=== PATIENT | female | born 1990 | race Caucasian/White ===

== ENCOUNTER 2024-11-03 00:12 | Emergency (ER) | payer BC, SELFPAY ==
[2024-11-03 00:14] VITALS: BP 150/103
[2024-11-03 00:43] LABS: % Basophils 0.7 % (0-2); % Eosinophils 1.9 % (0-6); % Immature Granulocytes 0.4 % (0-0.5); % Lymphocytes 27.3 % (20.5-51.1); % Monocytes 5.9 % (1.7-9.3); % Neutrophils 63.8 % (42.2-75.2); Absolute Basophils 0.1 10^3/uL (0-0.2); Absolute Eosinophils 0.2 10^3/uL (0-0.7); Absolute Immature Granulocytes 0.1 10^3/uL (0-0.05); Absolute Lymphocytes 3.4 10^3/uL (1.2-3.4); Absolute Monocytes 0.7 10^3/uL (0.1-0.6); Hemoglobin 14.2 g/dL (12.0-16.0); Mean Corp Hgb Conc. 35.5 g/dL (33.0-37.0); Mean Corpuscular Hgb 29.8 pg (27.0-31.0); Nucleated Red Blood Cells % 0 %; Platelet Count 307 10^3/uL (130-400); Red Blood Cell Count 4.76 10^6/uL (4.20-5.40); Red Cell Dist. Width 11.9 % (11.5-14.5); White Blood Cell Count 12.6 10^3/uL (4.8-10.8)
[2024-11-03 00:58] LABS: COVID-19 Antigen Negative (Negative)
[2024-11-03 01:01] LABS: HCG, Serum Qualitative Screen Negative
[2024-11-03 01:15] LABS: ALT (SGPT) 21 U/L (0-35); AST (SGOT) 28 U/L (14-36); Albumin 4.6 g/dl (3.5-5.0); Alkaline Phosphatase 54 U/L (38-126); Blood Urea Nitrogen 7 mg/dl (7-17); Calcium 9.7 mg/dl (8.4-10.2); Carbon Dioxide 26 mmol/L (22-30); Chloride 101 mmol/L (98-107); Glucose 99 mg/dl (70-99); Potassium 3.6 mmol/L (3.5-5.1); Sodium 137 mmol/L (135-145); Total Bilirubin 0.5 mg/dl (0.2-1.3); Total Protein 7.7 g/dl (6.3-8.2); eGFR > 60.00
--- NOTE | 2024-11-03 01:29 | ED.GENMED ---
History of Present Illness
General
Chief Complaint: Headache
Source: patient
Exam Limitations: none
Time Seen by Provider: 11/03/24 01:19
History of Present Illness
History of Present Illness:
This is a 33 year old female that comes in with c/o headache. States that she started 5 days ago with a migraine. States that normally her headaches only last 1-2 days but this is not going away. States that this is the worse headache that she ever
had. States that it started on the right back of her head and shoots up to the top behind her eye. States that she has been taking Excedrin Tension and Ibuprofen for pain with the last Ibuprofen being at 8pm. Denies any fever, chills, chest pain,
SOB, abd pain, nausea, vomiting, diarrhea, dizziness, urinary burning.
Past History
Past History
ED Past Medical History: Psychiatric (Anxiety) and Other (Headaches, ); Negative Asthma, HTN, Hypercholesterolemia or NIDDM
ED Past Surgical History: None
Social History
Tobacco: Non-smoker
Alcohol: None
Personal: Single
Living: with family
Review of Systems
Review of Systems
All Other Systems: ROS reviewed and negative except as documented in HPI and ROS
Constitutional: Reports no symptoms; Denies fever or chills
EENT: Reports no symptoms
Respiratory: Reports no symptoms; Denies cough or trouble breathing
Cardiac: Reports no symptoms; Denies chest pain
ABD/GI: Reports no symptoms; Denies abdominal pain, nausea, vomiting or diarrhea
: Reports no symptoms; Denies dysuria, frequency or urgency
Musculoskeletal: Reports no symptoms
Skin: Reports no symptoms
Neurological: Reports headache; Denies dizzy
Psychiatric: Reports no symptoms
Phy Exam
General Physical Exam
General Presentation: well appearing and no apparent distress
General age: appears stated age
General Skin: warm and dry
General Habitus: normal
General Mental: alert
General Hydration: dry mucous membranes
ENT Exam
ENT Exam: TM's normal, pharynx normal and neck supple
Eye Exam
Eye Exam: EOMI
Cardiovascular Exam
Cardiovascular Exam: regular rate/rhythm, no edema, no murmur and normal peripheral pulses
Pulmonary Exam
Pulmonary Exam: lungs clear, no respiratory distress, no rales, chest non tender, no crackles, no rhonchi, no wheezing and no cough
Gastrointestinal Exam
Gastrointestinal Exam: normal bowel sounds, non tender, soft, no organomegaly, no pulsatile mass and non distended
Musculoskeletal Exam
Musculoskeletal Exam: full ROM and no edema
Skin Exam
Skin Exam: normal color, warm/dry, no rash and no petechia
Psychiatric Exam
Psychiatric Exam: normal mood/affect
Course
Orders/Labs/Results
Orders:
Orders
11/03/24 00:21
Test Result ONCE
11/03/24 00:[address] [CT Head W/o Iv Contrast] Urgent
Comment:
Reason For Exam: right sided headache for 5 days
11/03/24 00:32
CMP [Comprehensive Metabolic Panel] Urgent
COVID-19 Antigen Urgent
Source: Nasal Swab
Complete Blood Count/With Diff Urgent
HCG, Serum Qualitative Screen Urgent
Influenza A+B Rapid Molecular Urgent
JESSICA Source: Nasal Swab
Specimen Description:
11/03/24 01:27
Acetaminophen 1000MG/100Ml [Ofirmev] 1,000 mg in 100 ml IV ONCE
Acetaminophen IV Indication:: ED Narcotic Naive Pt-ONCE
Dexamethasone Sod Phosphate [Decadron] 20 mg IV NOW STA
Ketorolac [Toradol] 30 mg IV NOW STA
11/03/24 01:28
0.9% Sodium Chloride 500 ml [Nss] 500 ml IV BOLUS
11/03/24 02:36
Diphenhydramine [Benadryl] 25 mg IV NOW STA
Abnormal Lab Results
11/03/24
00:32
WBC 12.6 H 10^3/uL
(4.8-10.8)
Abs Immat Gran (auto) 0.1 H 10^3/uL
(0-0.05)
Absolute Neuts (auto) 8.0 H 10^3/uL
(1.4-6.5)
Absolute Monos (auto) 0.7 H 10^3/uL
(0.1-0.6)
11/03/24 00:32
11/03/24 00:32
Leukocytosis, Otherwise normal labs. HCG negative. COVID and influenza negative.
Vital Signs
Initial and Last Documented VS:
Initial Vital Signs
Temp Pulse Resp BP Pulse Ox
98.1 F 118 18 150/103 98
11/03/24 00:14 11/03/24 00:14 11/03/24 00:14 11/03/24 00:14 11/03/24 00:14
Last Documented Vital Signs
Temp Pulse Resp BP Pulse Ox
98.1 F 95 18 140/104 100
11/03/24 00:14 11/03/24 01:56 11/03/24 00:14 11/03/24 02:33 11/03/24 02:33
MDM/Problems Addressed
Differential Diagnosis Includes:
Migraine
MDM/Problems Addressed:
This is a 33 year old female that comes in with c/o right posterior headache that shoots to the top of her head and behind her right eye. States that normally her headaches only last 1-2 days but this has been 5 days and it is not going away.
Will check labs, CT head and given IV fluids with Decadron and pain medication.
Back into see patient. Explained that her CT of her head is normal. Patient states that she is feeling better. Patient BP is elevated and states that she did have a panic attack about the Iv as she has never had one before. Will recheck and
explained that she needs to follow up with the [facility] doctor for recheck and discuss her anxiety. Will discharge patient home
Chronic conditions affecting care:
Headaches,
Acute Exacerbation and/or Progression of Chronic Illness:
Headaches
*Radiology
Radiology exam reviewed: radiology read reviewed (CT head- No acute intracranial hemorrhage, herniation or hydrocephalus. )
*Pulse Oximetry
Patient hypoxic: no
*EKG
Interpreted by ED Provider?: NA
Rate: EKG- N/A
*Recordist Chief Interpretation
Rate: Recordist Chief- N/A
*Critical Care Note
Total Time (30-74mins, 75-104mins- exclusive of procedures): Not Applicable
ED Attending Note
-
Portions of this chart may have been created with voice recognition software.� Occasional wrong word or��sound alike� substitutions may have occurred due to the inherent limitations of voice recognition software.
Discharge Plan
Departure
Patient Disposition: Home (Routine Discharge)
Date of Disposition: 11/03/24
Time of Disposition: 02:35
Patient with high blood pressure during this ER visit?: Yes
Condition: Good
Covid-19: Negative COVID-19
Discharge Problem:
Headache
Instructions: Headache, Adult (DC), BLOOD PRESSURE
Activity Restrictions/Additional Instructions:
As discussed, your blood work shows that your white blood cell count is slightly elevated. Your are negative for COVID and flu. Your CT of the head is normal. Please follow up with the family doctor about your anxiety and to recheck your Blood
pressure. Please increase your water intake to 8-8oz glasses daily. IF YOU HAVE INCREASED OR CHANGING HEADACHE PAIN, OR YOU HAVE ANY OTHER CONCERNS PLEASE RETURN TO THE EMERGENCY ROOM.
Interventions
Interventions:
*Risk Screen - Suicide Last Done: 11/03/24 00:20
*General Assessment Last Done: 11/03/24 01:52
*Neglect/Abuse Screening Last Done: 11/03/24 00:20
*ED COVID-19 Vaccine History Last Done: 11/03/24 00:20
ED- Neurological Assessment Last Done: 11/03/24 02:37
Discharge Date and Time
Print Language: [place]
[2024-11-03] MEDS: OFIRMEV 100 IV (01:48)
[2024-11-03] MEDS: TORADOL 30 MG IV (01:51)
[2024-11-03] MEDS: DECADRON 20 MG IV (01:51)
[2024-11-03] MEDS: NSS 500 IV (01:51)
[2024-11-03 01:53] VITALS: BMI 22.6
[2024-11-03 01:56] VITALS: BP 140/107
[2024-11-03 02:33] VITALS: BP 140/104
[2024-11-03] MEDS: BENADRYL 25 MG IV (02:42)
[2024-11-03 02:55] VITALS: BP 146/105
[2024-11-03 03:00] VITALS: BP 143/103
== END 2024-11-03 03:15 | disposition home or self-care (01) ==
LOC: EMR 00:12
PROVIDERS: EMERGENCY PHYSICIAN Student in an Organized Health Care Education/Training Program; FAMILY PHYSICIAN Physician Assistant
DX: R51.9 Headache, unspecified (principal); R03.0 Elevated blood-pressure reading, without diagnosis of hypertension
CPT/HCPCS: 96374; 96375; 96361; 99284; 70450; 80053; 84703; 85025; 87502; 87811

== ENCOUNTER 2024-11-08 04:07 | Emergency (ER) | payer BC, SELFPAY ==
[2024-11-08 04:08] VITALS: BP 144/102
--- NOTE | 2024-11-08 05:47 | ED.GENMED ---
History of Present Illness
General
Chief Complaint: Ear Problem
Source: patient
Exam Limitations: none
Time Seen by Provider: 11/08/24 05:46
History of Present Illness
History of Present Illness:
See MDM
Past History
Past History
ED Past Medical History: Psychiatric (Anxiety) and Other (Headaches, ); Negative Asthma, HTN, Hypercholesterolemia or NIDDM
ED Past Surgical History: None
Social History
Tobacco: Non-smoker
Alcohol: None
Personal: Single
Living: with family
Phy Exam
Physical Exam
Physical Exam:
See MDM
Course
Orders/Labs/Results
Orders:
Orders
11/08/24 05:46
LevoFLOXacin [Levaquin] 500 mg PO NOW STA
Vital Signs
Initial and Last Documented VS:
Initial Vital Signs
Temp Pulse Resp BP Pulse Ox
98.4 F 118 20 144/102 100
11/08/24 04:08 11/08/24 04:08 11/08/24 04:08 11/08/24 04:08 11/08/24 04:08
Last Documented Vital Signs
Temp Pulse Resp BP Pulse Ox
98.4 F 118 20 144/102 100
11/08/24 04:08 11/08/24 04:08 11/08/24 04:08 11/08/24 04:08 11/08/24 04:08
MDM/Problems Addressed
Differential Diagnosis Includes:
HPI and MDM Narrative:
34-year-old female presenting for evaluation of swelling of her right ear. It has progressed over the past 24 hours. She did recently receive piercings in the cartilage of her ear a few weeks ago. She denies fevers. On exam there is evidence of
cellulitis overlying the right ear along the pinna, helix and antihelix. It spares the earlobe. We discussed that this is likely perichondritis. Will start Levaquin for Pseudomonas coverage
Physical exam
General: Well appearing and non-toxic
HEENT: protecting airway. Cellulitis and inflammation along right pinna, helix antihelix. Earlobe spared
Neck: appears supple
CV: No evidence of cyanosis
Resp: No accessory muscle use
Abd: Non-distended
Extremities: No deformities
Neuro: alert
Psych: Normal affect
Skin: Intact
Problems Addressed including Acute and Chronic Conditions affecting care:
1. Perichondritis
Acuity: acute
Prognosis: stable
Details: Will start Levaquin for Pseudomonas coverage
Differential Diagnosis (but not limited to): Cellulitis, perichondritis
Drug therapy (if applicable): OTC meds, please see d/c instruction regarding Rx drugs
Amount and/or Complexity of Data Reviewed
Clinical info obtained from: Patient
External data reviewed: N/A
Labs I independently reviewed (but not limited to): N/A
Radiology: N/A
Pulse Ox: not hypoxic
EKG independently reviewed: N/A
Home Energy Auditor: N/A
Critical Care: N/A
Risk of Complication:
Social Determinants of health: Good social support
Discussed with other providers: N/A
Escalation of Care includes Admit/Obs: After being observed in the Emergency Department, pt stable for discharge.
Occasional wrong word or 'sound a like' substitutions may have occurred due to the inherent limitations of voice recognition software. Read the chart carefully and recognize, using context, where substitutions have occurred.
*Critical Care Note
Total Time (30-74mins, 75-104mins- exclusive of procedures): Not Applicable
ED Attending Note
-
Portions of this chart may have been created with voice recognition software.� Occasional wrong word or��sound alike� substitutions may have occurred due to the inherent limitations of voice recognition software.
Discharge Plan
Departure
Patient Disposition: Home (Routine Discharge)
Date of Disposition: 11/08/24
Time of Disposition: 05:47
Patient with high blood pressure during this ER visit?: Yes
Discharge Problem:
Perichondritis and chondritis of right pinna
Prescriptions:
New
levofloxacin 500 mg Tablet
500 mg PO DAILY Qty: 7 0RF
Activity Restrictions/Additional Instructions:
Watch for worsening signs of infection: fever over 100.5', increasing pain, red streaks around wound, swelling, or increasing drainage of pus. If any of these happen, return to ED promptly. Make sure that you take all your antibiotics as directed
and finish your prescription even if you feel better before the bottle is empty
Interventions
Interventions:
*Risk Screen - Suicide Last Done: 11/08/24 04:08
*Neglect/Abuse Screening Last Done: 11/08/24 04:08
Discharge Date and Time
Print Language: [id number]
[2024-11-08] MEDS: LEVAQUIN 500 MG PO (06:04)
== END 2024-11-08 06:08 | disposition home or self-care (01) ==
LOC: EMR 04:07
PROVIDERS: EMERGENCY PHYSICIAN Student in an Organized Health Care Education/Training Program; FAMILY PHYSICIAN Physician Assistant
DX: H61.011 Acute perichondritis of right external ear (principal)
CPT/HCPCS: 99283